=== PATIENT | female | born 1935 | race Caucasian/White ===

== ENCOUNTER → 2017-01-19 | Outpatient (CLI) | payer OTHER ==
[~2017-01-19] MED LIST: ACTOS PO; ASPIRIN81 M1 PO; BENADRYL25 MG PO; COUMADIN4 MG PO; DITROPAN5 MG PO; NORCO 10-325 TA1 TAB PO; PRILOSEC PO
--- NOTE | ~2017-01-19 | BD1 ---
[facility] A Service of [facility] & [facility] RADIOLOGY TEXT RESULTS PATIENT: PEDRO IYER LOCATION: [facility] : 37 UNIT #: [id number] AGE: [address]: Silverio Escobedo MD SEX: F ORDER DR: [id number] [facility] [address] [place], [place] [address] [id number] O MR#: [id number] Acc #: [id number] NAME: PEDRO IYER : 1935 SEX: F STUDY DATE/TIME: 01/19/2017 10:37 UNIT: [facility] ROOM: STUDY DESCRIPTION: BD Dexa Bone Dens 1+ Site Attending Physician: Silverio Escobedo M.D. Referring Physician: Silverio Escobedo M.D. Ordering Physician: Silverio Escobedo M.D. Primary Care Physician: Silverio Escobedo M.D. MEDICAL IMAGING REPORT This report is preliminary unless electronic signature is present EXAM DXA scan, 01/19/2017. HISTORY Status post menopause with no hormone replacement therapy. Osteopenia. Hysterectomy at age 31. Left hip fracture in 2010. FINDINGS Bone mineral density in the lumbar spine from L1-L4 is 0.812 g/cm2 which is 2.1 standard deviations below the mean when compared to the young adult reference population which is characteristic of osteopenia. This is 0.6 standard deviations above the mean when compared to the age-matched population. Bone mineral density in the right femoral neck was 0.611 g/cm2 which is 2.1 standard deviations below the mean when compared to the young adult reference population which is characteristic of osteopenia. This is 0.2 standard deviations above the mean when compared to the age-matched population. IMPRESSION Bone mineral density in the lumbar spine and right hip characteristic of osteopenia. Dictated by... Austin Mckeon M.D. THIS IS AN ELECTRONICALLY VERIFIED REPORT Austin Mckeon M.D. at 01/20/2017 8:07 AM GINO/kenneth [facility] A Service of [facility] & [facility] RADIOLOGY TEXT RESULTS PATIENT: PEDRO IYER LOCATION: [facility] : 37 UNIT #: [id number] AGE: [address]: Silverio Escobedo MD SEX: F ORDER DR: TD: 01/19/2017 12:01 JOB #: [id number] MEDICAL IMAGING REPORT Page 1 of 1 COPY
== END | disposition home or self-care (01) ==
LOC: CWCC 10:17
DX: Z13.820 Encounter for screening for osteoporosis (principal); M85.89 Other specified disorders of bone density and structure, multiple sites
CPT/HCPCS: 77080